=== PATIENT | male | born 1950 | race Two or more races ===

== ENCOUNTER 2023-09-08 08:09 | Emergency (ER) | payer OTHER ==
[~2023-09-08] VITALS: Ht 157.5 cm; Wt 72.1 kg
[~2023-09-08 08:09] MED LIST: HYZAAR 100/25 T1 TAB; LEVAQUIN500 MG; NORVASC5 MG; ZOCOR20 MG
[2023-09-08] MEDS ORDERED: PEPCID AC20 MG PO (08:18)
[2023-09-08] MEDS ORDERED: VALSARTAN-HCTZ1 EAC1 (08:21)
[2023-09-08 09:40] LABS: HEMATOCRIT 40.7 % (39.0-48.0); HEMOGLOBIN 13.5 g/dL (13-16.00); MEAN CELL VOLUME 90.7 fL (80.0-100.00); MEAN CORPUSCULAR HGB CONC 33.1 g/dl (32.0-36.0); PLATELET COUNT 140 K/uL (150-450); RED BLOOD COUNT 4.49 M/uL (4.00-6.00); RED CELL DISTRIBUTION WIDTH 14.1 % (11.5-14.5)
[2023-09-08] MEDS ORDERED: ZYRTEC10 MG PO (10:04)
[2023-09-08] MEDS ORDERED: TUSNEL LIQUID178 ML PO (10:04)
== END 2023-09-08 11:06 | disposition home or self-care (01) ==
LOC: ER 08:09
PROVIDERS: General Practice
DX: R05.9 Cough, unspecified (principal); I10 Essential (primary) hypertension; Z20.822 Contact with and (suspected) exposure to COVID-19